=== PATIENT | female | born 1945 | race Caucasian/White ===

== ENCOUNTER 2022-02-23 10:53 | Day surgery (SDC) | payer MEDICARE, OTHER ==
[~2022-02-23 10:53] MED LIST: Lactated Ringers 1,000 ML IV SCH; Midazolam 1 MG/ML 2 ML SDV ONE; Propofol 200 MG/20 ML SDV ONE; Sodium Chloride 0.9% 10 ML Syringe FLUSH PRN
== END 2022-02-23 13:40 | disposition home or self-care (01) ==
LOC: LL.SDS 10:53
PROVIDERS: ATTEND Surgery
DX: Z12.11 Encounter for screening for malignant neoplasm of colon (principal); D12.3 Benign neoplasm of transverse colon; M81.0 Age-related osteoporosis without current pathological fracture; E03.9 Hypothyroidism, unspecified; N18.5 Chronic kidney disease, stage 5; I12.0 Hypertensive chronic kidney disease with stage 5 chronic kidney disease or end stage renal disease; F51.01 Primary insomnia; F17.210 Nicotine dependence, cigarettes, uncomplicated; Z88.0 Allergy status to penicillin; Z79.82 Long term (current) use of aspirin; Z79.899 Other long term (current) drug therapy; Z88.8 Allergy status to other drugs, medicaments and biological substances
CPT/HCPCS: 00812; 88305; J2704; J7120